=== PATIENT | male | born 1990 | race Caucasian/White ===

== ENCOUNTER 2023-11-26 09:41 | Emergency (ER) | payer OTHER, SELFPAY ==
[2023-11-26 10:00] VITALS: BP 159/99
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
[2023-11-26 16:00] VITALS: BP 141/78
== END 2023-11-26 17:46 | disposition home or self-care (01) ==
LOC: EMR 09:41
PROVIDERS: EMERGENCY PHYSICIAN Emergency Medicine; FAMILY PHYSICIAN Emergency Medicine
DX: T76.21XA Adult sexual abuse, suspected, initial encounter (principal); X58.XXXA Exposure to other specified factors, initial encounter; I10 Essential (primary) hypertension; F17.200 Nicotine dependence, unspecified, uncomplicated; F41.9 Anxiety disorder, unspecified; F32.A Depression, unspecified; Z53.29 Procedure and treatment not carried out because of patient's decision for other reasons
CPT/HCPCS: 99281

== ENCOUNTER → 2023-12-10 15:43 | Outpatient (REF) | payer OTHER, SELFPAY | LOC: RCS 15:43 | PROVIDERS: ATTENDING PHYSICIAN Internal Medicine Cardiovascular Disease; FAMILY PHYSICIAN Emergency Medicine | DX: I10 Essential (primary) hypertension (principal) | CPT/HCPCS: 93306 ==

== ENCOUNTER 2024-01-17 22:27 | Emergency (ER) | payer OTHER, SELFPAY ==
[2024-01-17 22:30] VITALS: BP 139/96
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
[2024-01-18] MEDS: ROCEPHIN 500 MG IM (03:22)
[2024-01-18] MEDS: VIBRAMYCIN 100 MG PO (03:23)
[2024-01-18] MEDS: TRUVADA TABLET 1 TABLET PO (03:23)
[2024-01-18] MEDS: ISENTRESS 400 MG PO (03:24)
[2024-01-18 03:47] LABS: % Basophils 0.8 % (0-2); % Eosinophils 1.8 % (0-6); % Immature Granulocytes 0.1 % (0-0.5); % Monocytes 8.8 % (1.7-9.3); % Neutrophils 41.5 % (42.2-75.2); Absolute Basophils 0.1 10^3/uL (0-0.2); Absolute Eosinophils 0.2 10^3/uL (0-0.7); Absolute Lymphocytes 4.3 10^3/uL (1.2-3.4); Absolute Monocytes 0.8 10^3/uL (0.1-0.6); Absolute Neutrophils 3.8 10^3/uL (1.4-6.5); Hematocrit 41.5 % (39.0-52.0); Hemoglobin 14.4 g/dL (13.0-18.0); Mean Corp Hgb Conc. 34.7 g/dL (33.0-37.0); Mean Corpuscular Hgb 27.4 pg (27.0-31.0); Mean Platelet Volume 10.6 fL (7.4-10.4); Nucleated Red Blood Cells % 0 % (-); Platelet Count 259 10^3/uL (130-400); Red Blood Cell Count 5.25 10^6/uL (4.70-6.10); Red Cell Dist. Width 13.3 % (11.5-14.5); White Blood Cell Count 9.1 10^3/uL (4.8-10.8)
[2024-01-18 04:06] VITALS: BP 132/88
[2024-01-18 04:11] LABS: ALT (SGPT) 37 U/L (0-50); AST (SGOT) 32 U/L (17-59); Albumin 4.5 g/dl (3.5-5.0); Alkaline Phosphatase 75 U/L (38-126); Blood Urea Nitrogen 22 mg/dl (9-20); Calcium 9.7 mg/dl (8.4-10.2); Carbon Dioxide 27 mmol/L (22-30); Chloride 99 mmol/L (98-107); Glucose 100 mg/dl (70-99); Potassium 3.7 mmol/L (3.5-5.1); Sodium 134 mmol/L (135-145); Total Bilirubin 0.4 mg/dl (0.2-1.3); Total Protein 7.2 g/dl (6.3-8.2); eGFR > 60.00
[2024-01-18 04:43] LABS: Hepatitis B Surface Antigen Negative (Negative)
[2024-01-18 05:01] LABS: Hepatitis B Surface Antibody Positive; Hepatitis C Antibody Negative (Negative)
[2024-01-18 14:15] LABS: HIV Combo Negative (Negative)
[2024-01-18 15:57] LABS: Syphilis/T. pallidum Ab Reflex Negative (Negative)
== END 2024-01-18 04:11 | disposition home or self-care (01) ==
LOC: EMR 22:27
PROVIDERS: EMERGENCY PHYSICIAN Emergency Medicine; FAMILY PHYSICIAN Emergency Medicine
DX: Z77.21 Contact with and (suspected) exposure to potentially hazardous body fluids (principal); Z20.2 Contact with and (suspected) exposure to infections with a predominantly sexual mode of transmission; S50.12XA Contusion of left forearm, initial encounter; X58.XXXA Exposure to other specified factors, initial encounter; I10 Essential (primary) hypertension; F41.9 Anxiety disorder, unspecified; F17.200 Nicotine dependence, unspecified, uncomplicated
CPT/HCPCS: 99284; 96372; 80053; 85025; 86706; 86780; 86803; 87340; 87389; 87491; 87591

== ENCOUNTER 2024-02-25 21:33 | Emergency (ER) | payer OTHER, SELFPAY ==
[2024-02-25 21:42] VITALS: BP 161/92
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
== END 2024-02-25 22:41 | disposition home or self-care (01) ==
LOC: EMR 21:33
PROVIDERS: EMERGENCY PHYSICIAN Emergency Medicine
DX: F41.0 Panic disorder [episodic paroxysmal anxiety] (principal); W01.0XXA Fall on same level from slipping, tripping and stumbling without subsequent striking against object, initial encounter; F41.9 Anxiety disorder, unspecified; I10 Essential (primary) hypertension; F32.A Depression, unspecified; F17.200 Nicotine dependence, unspecified, uncomplicated
CPT/HCPCS: 99283

== ENCOUNTER 2024-02-26 01:53 | Emergency (ER) | payer OTHER, SELFPAY ==
[2024-02-26 01:57] VITALS: BP 168/111
--- NOTE | 2024-02-26 02:34 | ED.GENMED ---
History of Present Illness
General
Chief Complaint: Anxiety
Source: patient and previous hospital records (ED visit earlier this evening for similar complaint)
Exam Limitations: none
Time Seen by Provider: 02/26/24 02:15
Nursing documentation reviewed up to this point in time: agreed with
History of Present Illness
History of Present Illness:
This is a 33-year-old gentleman who admits to methamphetamine use, generally using on a daily basis/twice daily. He admits to increased anxiety, feels that he is going to and although he does admit that anxiety and panic is worsened after
methamphetamine use tonight he does not believe this is a causative factor.
There is reported history of bipolar disorder and he also has history of 6 mm hemangioma left anterior eli noted on MRI of the brain April 2023. MRI was performed due to complaints of headache and reported family history of aneurysms. MRI of
the cervical spine unremarkable. MRI of the brain unremarkable.
He currently denies headache, he does admit to intermittent dizziness more so with standing. No episodes of syncope. He denies chest pain or shortness of breath. No cough, no fever no chills, no abdominal pain, no nausea or vomiting.
He denies suicidal thoughts or plan. He admits to difficulty sleeping which is worsened with ongoing daily methamphetamine use.
Past History
Past History
ED Past Medical History: HTN, Psychiatric (Anxiety, Depression, bipolar disorder, substance abuse), Other ( 6 mm hemangioma left eli incidental finding MRI of the brain April 2023. Unremarkable MRI of the brain, unremarkable MRI cervical
spine.) and Other (Angular chelitis)
ED Past Surgical History: Other (rhinoplasty, left ear surgery)
Patient has exhibited threatening behavior?: No
Social History
Tobacco: Smoker
Alcohol: None
Drug: Cocaine (Methamphetamine abuse.)
Personal: Single
Living: alone
Employment: Not employed
Family History
Family History: Unable to obtain
Phy Exam
Physical Exam
Physical Exam:
GENERAL: 33-year-old male appears his stated age, mildly disheveled, mildly to moderately anxious but easily communicative. Speech is pressured. Mildly scattered thought processes but no suicidal ideations. No hallucinations. Intermittently
sipping water from a straw.
EYE: pupils are 6 mm equal and reactive. anicteric
NECK: Supple, nontender, no meningismus, no significant adenopathy.
ENT: posterior pharynx is clear, oral mucosa is moist. No rhinorrhea.
CARDIAC: Regular rate and rhythm. no murmur.
LUNGS: Clear breath sounds bilaterally, no acute respiratory distress, no wheezes/rales/rhonchi
ABDOMEN: Soft, nondistended, without focal tenderness, no r/g, no cvat. normoactive BS.
NEUROLOGICAL: Alert and oriented x3, no focal neuro deficits. Gait is duarte and steady.
SKIN: Warm and dry, normal color, skin intact. No rash.
MUSCULOSKELETAL: No C/C/E. peripheral pulses are full and equal b/l. No palpable tenderness.
PSYCH: Moderately anxious. Pressured speech. Mildly scattered thought processes. Admits to ongoing methamphetamine use on a daily basis. Denies suicidal thoughts or plan. Poor insight and judgment.
Course
Orders/Labs/Results
Orders:
Orders
02/26/24 02:18
Urine Drug Abuse Screen Urgent
Date Specimen was Collected: 02/26/24
Time Specimen was Collected: 02:25
Vital Signs
Initial and Last Documented VS:
Initial Vital Signs
Temp Pulse Resp BP Pulse Ox
97.8 F 86 18 168/111 94
02/26/24 01:57 02/26/24 01:57 02/26/24 01:57 02/26/24 01:57 02/26/24 01:57
Last Documented Vital Signs
Temp Pulse Resp BP Pulse Ox
97.8 F 86 18 168/111 94
02/26/24 01:57 02/26/24 01:57 02/26/24 01:57 02/26/24 01:57 02/26/24 01:57
MDM/Problems Addressed
Differential Diagnosis Includes:
Patient admits to at least twice daily methamphetamine use and presents to this ED twice within a few hours with complaints of anxiety, panic, feeling that he is going to .
We began to discuss discontinuing methamphetamine use and with this, he abruptly became argumentative, angry requesting to leave, got himself up off of the stretcher, dressed and promptly walked out of the ED.
During this episode I have encouraged him to stay, to discuss things rationally/calmly and slowly, and to continue evaluation but he adamantly refuses and has walked out of the ED.
He continues to deny headache, no focal neuro-deficits on exam and he continues to deny suicidal thoughts or plan.
He is anxious and agitated, exhibits somewhat pressured speech but remains coherent.
Poor insight and judgment but at this point does not appear to be an imminent danger to himself nor others.
He has promptly and swiftly walked out of the ED with steady and unaided gait.
I have significant concern that his ongoing methamphetamine abuse is cause for his current decompensation but at this point he does not appear to be a danger to himself and clearly not ready/willing to discuss drug rehab/sobriety.
Chronic conditions affecting care: Psychiatric illness and Other (Ongoing methamphetamine abuse)
Acute Exacerbation and/or Progression of Chronic Illness: Psychiatric illness
*Pulse Oximetry
Patient hypoxic: no
*Map Compiler Interpretation
Rate: normal
Interpretation: normal
Rhythm: sinus
*Critical Care Note
Total Time (30-74mins, 75-104mins- exclusive of procedures): Not Applicable
ED Attending Note
-
Portions of this chart may have been created with voice recognition software.� Occasional wrong word or��sound alike� substitutions may have occurred due to the inherent limitations of voice recognition software.
Discharge Plan
Departure
Patient Disposition: Against Medical Advice
Date of Disposition: 02/26/24
Time of Disposition: 02:42
Condition: Fair
Discharge Problem:
Methamphetamine abuse
Prescriptions:
No Action
hydrochlorothiazide 25 MG tablet
25 mg PO DAILY
lisinopril 40 MG tablet
40 mg PO DAILY
Isentress 400 mg tablet
400 mg PO BID 28 Days Qty: 56 0RF
emtricitabine-tenofovir (TDF) [Truvada] 200-300 mg tablet
1 tab PO DAILY 28 Days Qty: 28 0RF
doxycycline hyclate 100 mg tablet
100 mg PO BID 7 Days Qty: 14 0RF
Referrals:
Trini Marin MD [Family Provider] -
Interventions
Interventions:
*Risk Screen - Suicide Last Done: 02/26/24 01:57
*General Assessment Last Done: 02/26/24 01:57
*Neglect/Abuse Screening Last Done: 02/26/24 01:57
*ED COVID-19 Vaccine History Last Done: 02/26/24 02:05
*Nursing Disposition Last Done: 02/26/24 02:48
ED-Psychological Assessment Last Done: 02/26/24 02:06
Discharge Date and Time
Discharge Date/Time: 02/26/24 02:49
Print Language: MAORI
--- NOTE | 2024-02-26 02:35 | EDRN ---
Dr. Pantoja evaluated patient, pt offered to speak with crisis, pt decline and then stated ' I am leaving'. This RN entered room to speak with patient. Pt climbed out of stretcher and was putting on clothing, IV removed. Pt stated ' I am on disability
and you are kicking me out'. RN told patient that no one is kicking him out and that this RN would like him to stay to be evaluated. Pt declined treatment and stated ' I just want to go home and sleep in my bed'. Pt asked to speak with crisis, RN
offered to have crisis speak with him. Pt asking to leave ER and go over to crisis.Pt dressed himself and security escorted patient to [facility] by security.
== END 2024-02-26 02:49 | disposition left against medical advice (07) ==
LOC: EMR 01:53
PROVIDERS: EMERGENCY PHYSICIAN Emergency Medicine; FAMILY PHYSICIAN Emergency Medicine
DX: F15.10 Other stimulant abuse, uncomplicated (principal); F41.9 Anxiety disorder, unspecified; R45.1 Restlessness and agitation; Z53.29 Procedure and treatment not carried out because of patient's decision for other reasons; G47.9 Sleep disorder, unspecified; I10 Essential (primary) hypertension; D18.09 Hemangioma of other sites; F31.9 Bipolar disorder, unspecified; F32.A Depression, unspecified; F17.200 Nicotine dependence, unspecified, uncomplicated
CPT/HCPCS: 99281

== ENCOUNTER 2024-02-26 08:33 | Emergency (ER) | payer OTHER, SELFPAY ==
[2024-02-26 08:43] VITALS: BP 157/90; BMI 27.0
--- NOTE | 2024-02-26 10:01 | ED.GENMED ---
History of Present Illness
General
Chief Complaint: Hyper/Hypo Thermia Problem
Source: patient
Exam Limitations: none
Time Seen by Provider: 02/26/24 08:43
Nursing documentation reviewed up to this point in time: agreed with
History of Present Illness
History of Present Illness:
Patient with history of bipolar disorder, anxiety, and depression, presents to ED for evaluation, as he reported to 'TV show', and 'collapsed', after walking 12 miles. Patient was evaluated in ED earlier today for panic attack and was discharged
home. This is when he proceeded to walk 12 miles to appear at TV show. Denies preceding chest palpitations or shortness of breath. Denies headache. Denies dizziness. Denies recent change in medications or diet.
Past History
Past History
ED Past Medical History: HTN, Psychiatric (Anxiety, Depression, bipolar disorder, substance abuse), Other ( 6 mm hemangioma left eli incidental finding MRI of the brain April 2023. Unremarkable MRI of the brain, unremarkable MRI cervical
spine.) and Other (Angular chelitis)
ED Past Surgical History: Other (rhinoplasty, left ear surgery)
Patient has exhibited threatening behavior?: No
Social History
Tobacco: Smoker
Alcohol: None
Drug: Cocaine (Methamphetamine abuse.)
Personal: Single
Living: alone
Employment: Not employed
Family History
Family History: Unable to obtain
Review of Systems
Review of Systems
Allergies reviewed?: Yes
All Other Systems: ROS reviewed and negative except as documented in HPI and ROS
Constitutional: Reports no symptoms
EENT: Reports no symptoms
Respiratory: Reports no symptoms
Cardiac: Reports syncope
ABD/GI: Reports no symptoms
Musculoskeletal: Reports no symptoms
Skin: Reports no symptoms
Neurological: Reports no symptoms
Phy Exam
Physical Exam
Physical Exam:
Physical Exam
General: no apparent distress, not acutely ill. afebrile
Head: nc/at. eomi
Neck: supple. no meningeal signs.
Heart: s1/s2 regular rate and rhythm, no murmur. equal radial pulses.
Lungs: no acute respiratory distress. clear bilaterally
Abdomen: normal bowel sounds. not tender.
Neuro: alert and oriented. no focal neurological deficits
Skin: no rash
Psychiatric: well kept. interactive and cooperative, but with tangential thoughts
Extremities: no edema. no calf tenderness.
Course
Orders/Labs/Results
Orders:
Orders
02/26/24 09:19
Crisis Consult Urgent
Reason for Consult: delusional thoughts
02/26/24 09:28
Diphenhydramine [Benadryl] 50 mg .ROUTE .STK-MED ONE
Ketorolac [Toradol] 15 mg .ROUTE .STK-MED ONE
Ondansetron Injectable [Zofran] 4 mg .ROUTE .STK-MED ONE
Abnormal Lab Results
02/26/24
16:46
POC Glucose 163 H mg/dl
(70-99)
Vital Signs
Initial and Last Documented VS:
Initial Vital Signs
Temp Pulse Resp BP Pulse Ox
98.4 F 96 16 157/90 100
02/26/24 08:43 02/26/24 08:43 02/26/24 08:43 02/26/24 08:43 02/26/24 08:43
Last Documented Vital Signs
Temp Pulse Resp BP Pulse Ox
98.4 F 97 16 158/88 99
02/26/24 08:43 02/26/24 12:29 02/26/24 12:29 02/26/24 12:29 02/26/24 12:29
MDM/Problems Addressed
MDM/Problems Addressed:
Pt's history of having collapsed at work site inconsistent with report from paramedics who report that patient was picked up, walking along the street, alone. Pt does have MRI identified hemangioma, picked up incidentally in 05/17. Pt since then has
had follow up with neurologist @ [facility]. He is scheduled for outpatient MRI brain as a follow up.
In light of patient's multiple ED visits, will consult [facility].
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
At this point, patient is afebrile, hemodynamically stable, and neurologically intact at time of discharge. No indication for any further workup at this time.
*Critical Care Note
Total Time (30-74mins, 75-104mins- exclusive of procedures): Not Applicable
ED Attending Note
-
Portions of this chart may have been created with voice recognition software.� Occasional wrong word or��sound alike� substitutions may have occurred due to the inherent limitations of voice recognition software.
Discharge Plan
Departure
Patient Disposition: Home (Routine Discharge)
Date of Disposition: 02/26/24
Time of Disposition: 11:27
Patient with high blood pressure during this ER visit?: Yes
Condition: Good
Discharge Problem:
Anxiety
Instructions: Anxiety, Adult ED
Prescriptions:
No Action
hydrochlorothiazide 25 MG tablet
25 mg PO DAILY
lisinopril 40 MG tablet
40 mg PO DAILY
Isentress 400 mg tablet
400 mg PO BID 28 Days Qty: 56 0RF
emtricitabine-tenofovir (TDF) [Truvada] 200-300 mg tablet
1 tab PO DAILY 28 Days Qty: 28 0RF
doxycycline hyclate 100 mg tablet
100 mg PO BID 7 Days Qty: 14 0RF
Referrals:
Trini Marin MD [Family Provider] -
Activity Restrictions/Additional Instructions:
As discussed, please continue to follow-up with your neurologist at [facility] as well as [facility] outpatient treatment center, for continual evaluation and treatment.
Interventions
Interventions:
*Risk Screen - Suicide Last Done: 02/26/24 08:43
*General Assessment Last Done: 02/26/24 08:43
*Neglect/Abuse Screening Last Done: 02/26/24 08:43
ED- Fall Risk Assessment Last Done: 02/26/24 11:52
*ED COVID-19 Vaccine History Last Done: 02/26/24 08:43
*Nursing Disposition Last Done: 02/26/24 12:29
ED- Neurological Assessment Last Done: 02/26/24 11:52
ED-Skin Assessment Last Done: 02/26/24 11:52
Discharge Date and Time
Discharge Date/Time: 02/26/24 12:35
Print Language: ANGUILLAN
[2024-02-26 12:29] VITALS: BP 158/88
[2024-02-26 16:48] LABS: Glucose - Point of Care 163 mg/dl (70-99)
== END 2024-02-26 12:35 | disposition home or self-care (01) ==
LOC: EMR 08:33
PROVIDERS: EMERGENCY PHYSICIAN Emergency Medicine; FAMILY PHYSICIAN Emergency Medicine
DX: R55 Syncope and collapse (principal); F31.9 Bipolar disorder, unspecified; F41.9 Anxiety disorder, unspecified; F22 Delusional disorders; F32.A Depression, unspecified; F15.10 Other stimulant abuse, uncomplicated; F41.0 Panic disorder [episodic paroxysmal anxiety]; I10 Essential (primary) hypertension; D18.09 Hemangioma of other sites; F17.200 Nicotine dependence, unspecified, uncomplicated; Z91.51 Personal history of suicidal behavior
CPT/HCPCS: 99283; 82962

== ENCOUNTER 2024-02-26 14:54 | Emergency (ER) | payer OTHER, SELFPAY ==
[2024-02-26 15:02] VITALS: BP 157/77
[2024-02-26 15:20] LABS: % Basophils 0.4 % (0-2); % Eosinophils 0.3 % (0-6); % Immature Granulocytes 0.3 % (0-0.5); % Lymphocytes 17.2 % (20.5-51.1); % Monocytes 7.9 % (1.7-9.3); % Neutrophils 73.9 % (42.2-75.2); Absolute Basophils 0.1 10^3/uL (0-0.2); Absolute Lymphocytes 2.3 10^3/uL (1.2-3.4); Absolute Monocytes 1.1 10^3/uL (0.1-0.6); Absolute Neutrophils 10.1 10^3/uL (1.4-6.5); Hematocrit 39.6 % (39.0-52.0); Hemoglobin 13.9 g/dL (13.0-18.0); Mean Corp Hgb Conc. 35.1 g/dL (33.0-37.0); Mean Corpuscular Hgb 28.2 pg (27.0-31.0); Mean Corpuscular Volume 80.3 fL (80.0-94.0); Mean Platelet Volume 10.7 fL (7.4-10.4); Nucleated Red Blood Cells % 0 % (-); Platelet Count 250 10^3/uL (130-400); Red Blood Cell Count 4.93 10^6/uL (4.70-6.10); Red Cell Dist. Width 13.5 % (11.5-14.5); White Blood Cell Count 13.6 10^3/uL (4.8-10.8)
[2024-02-26 15:41] LABS: ALT (SGPT) 41 U/L (0-50); AST (SGOT) 61 U/L (17-59); Albumin 4.8 g/dl (3.5-5.0); Alkaline Phosphatase 91 U/L (38-126); Blood Urea Nitrogen 23 mg/dl (9-20); Calcium 9.3 mg/dl (8.4-10.2); Carbon Dioxide 15 mmol/L (22-30); Chloride 101 mmol/L (98-107); Glucose 69 mg/dl (70-99); Potassium 4.1 mmol/L (3.5-5.1); Sodium 136 mmol/L (135-145); Total Bilirubin 1.4 mg/dl (0.2-1.3); eGFR > 60.00
--- NOTE | 2024-02-26 15:49 | ED.GENMED ---
History of Present Illness
General
Chief Complaint: Social Service Referral
Time Seen by Provider: 02/26/24 14:56
History of Present Illness
History of Present Illness:
Patient is a 33-year-old man with history of bipolar disorder, depression anxiety presenting to the emergency department for medical clearance. Per chart review patient has been here twice today. 1 after likely using methamphetamine and another
time after patient was found wandering in the streets. He is coming today after he was arrested by police. He is under their custody. Patient states that he was opening a car door when this occurred. He denies any SI or HI. Denies any alcohol
or drug use currently. He denies any chest pain difficulty breathing or belly pain. No nausea or vomiting. He does state that he does eat and drink though he does feel dehydrated as he has not been eating as much as he should be. He is extremely
agitated that he is here with police.
Past History
Past History
ED Past Medical History: HTN, Psychiatric (Anxiety, Depression, bipolar disorder, substance abuse), Other ( 6 mm hemangioma left eli incidental finding MRI of the brain April 2023. Unremarkable MRI of the brain, unremarkable MRI cervical
spine.) and Other (Angular chelitis)
ED Past Surgical History: Other (rhinoplasty, left ear surgery)
Patient has exhibited threatening behavior?: No
Social History
Tobacco: Smoker
Alcohol: None
Drug: Cocaine (Methamphetamine abuse.)
Personal: Single
Living: alone
Employment: Not employed
Family History
Family History: Unable to obtain
Phy Exam
Physical Exam
Physical Exam:
GENERAL: in no acute distress
HEENT: normocephalic, extraocular movements intact, moist oral mucosa
NECK: normal inspection
RESPIRATORY: no respiratory distress, clear to auscultation bilaterally
CARDIOVASCULAR: regular rate and rhythm
ABDOMEN/: soft, non-distended, non-tender to palpation, no rebound or guarding
EXTREMITIES: non-tender, no edema/swelling
NEUROLOGIC: awake and alert, moves all extremities
Alert and oriented x 3, normal mood and affect, not currently suicidal or homicidal, cooperative and communicating though intermittently agitated towards police, no active auditory or visual hallucinations
SKIN: warm
Course
Orders/Labs/Results
Orders:
Orders
02/26/24 15:04
Electrocardiogram (*1) Urgent
Reason for Study: Other
Other Reason for Exam: medical clearence
EKG- Treatment ONCE
02/26/24 15:13
CMP [Comprehensive Metabolic Panel] Urgent
Complete Blood Count/With Diff Urgent
Abnormal Lab Results
02/26/24
15:13
WBC 13.6 H 10^3/uL
(4.8-10.8)
MPV 10.7 H fL
(7.4-10.4)
Absolute Neuts (auto) 10.1 H 10^3/uL
(1.4-6.5)
Absolute Monos (auto) 1.1 H 10^3/uL
(0.1-0.6)
Lymphocytes % 17.2 L %
(20.5-51.1)
Carbon Dioxide 15 L mmol/L
(22-30)
BUN 23 H mg/dl
(9-20)
Glucose 69 L mg/dl
(70-99)
Total Bilirubin 1.4 H mg/dl
(0.2-1.3)
AST 61 H U/L
(17-59)
02/26/24 15:13
02/26/24 15:13
Vital Signs
Initial and Last Documented VS:
Initial Vital Signs
Temp Pulse Resp BP Pulse Ox
98.3 F 91 19 157/77 98
02/26/24 15:02 02/26/24 15:02 02/26/24 15:02 02/26/24 15:02 09/03/24 15:02
Last Documented Vital Signs
Temp Pulse Resp BP Pulse Ox
98.3 F 91 19 157/77 98
02/26/24 15:02 02/26/24 15:02 02/26/24 15:02 02/26/24 15:02 02/26/24 15:02
MDM/Problems Addressed
Differential Diagnosis Includes:
Patient is a 33-year-old man with history of bipolar, depression presenting to the emergency department under police custody for clearance. Vitals are unremarkable on exam shows a man who is calm and cooperative with no current complaints. Blood
work was obtained prior to my evaluation. Unfortunately he does have a low CO2 as well as an elevated anion gap. He does state that he is not been drinking and eating as much as he likes. Likely related to some sort of ketoacidosis. I did offer
patient IV fluids and some D5 normal saline however patient states that has been able to tolerate p.o. and would prefer no more IV as she has had multiple in the past 12 hours. Will give patient p.o. and repeat Accu-Chek. He is otherwise
well-appearing so I do not think the low bicarb is an infectious or sepsis process. He does not have any etiology of an infection on history or exam. I do think at this time it is reasonable for p.o. fluids.
*Critical Care Note
Total Time (30-74mins, 75-104mins- exclusive of procedures): Not Applicable
Update Note
Update Note:
On reevaluation patient more agitated at the police. He is requesting to leave the hospital as he wants to finish out the process with the police officers. Repeat blood sugar after adequate p.o. was normal. Patient continues to remain
well-appearing. We did discuss again the option of IV fluids however patient would prefer to leave at this time. Will discharge at this time with strict return precautions.
ED Attending Note
-
Portions of this chart may have been created with voice recognition software.� Occasional wrong word or��sound alike� substitutions may have occurred due to the inherent limitations of voice recognition software.
Discharge Plan
Departure
Patient Disposition: Home (Routine Discharge)
Date of Disposition: 02/26/24
Time of Disposition: 16:48
Patient with high blood pressure during this ER visit?: Yes
Discharge Problem:
Dehydration
Prescriptions:
No Action
hydrochlorothiazide 25 MG tablet
25 mg PO DAILY
lisinopril 40 MG tablet
40 mg PO DAILY
Isentress 400 mg tablet
400 mg PO BID 28 Days Qty: 56 0RF
emtricitabine-tenofovir (TDF) [Truvada] 200-300 mg tablet
1 tab PO DAILY 28 Days Qty: 28 0RF
doxycycline hyclate 100 mg tablet
100 mg PO BID 7 Days Qty: 14 0RF
Referrals:
NONE,* [Family Provider] -
Activity Restrictions/Additional Instructions:
You were seen in the Emergency Department today. Please make sure you stay well-hydrated and continue to eat at least 3 large meals a day.
We would like for you to follow up with your primary care physician for further evaluation. If you experience fever, worsening of your symptoms, or develop any other new or concerning symptoms, please return to the Emergency Department immediately.
Please see the attached sheet for additional information.
Interventions
Interventions:
*Risk Screen - Suicide Last Done: 02/26/24 14:56
*General Assessment Last Done: 02/26/24 14:56
Discharge Date and Time
Print Language: ITALIAN
== END 2024-02-26 16:51 | disposition home or self-care (01) ==
LOC: EMR 14:54
PROVIDERS: Emergency Medicine; EMERGENCY PHYSICIAN Student in an Organized Health Care Education/Training Program
DX: E86.0 Dehydration (principal); R45.1 Restlessness and agitation; Z02.79 Encounter for issue of other medical certificate; F31.9 Bipolar disorder, unspecified; F32.A Depression, unspecified; Z65.3 Problems related to other legal circumstances; F15.10 Other stimulant abuse, uncomplicated; I10 Essential (primary) hypertension; F41.9 Anxiety disorder, unspecified; D18.09 Hemangioma of other sites; F17.200 Nicotine dependence, unspecified, uncomplicated
CPT/HCPCS: 99283; 80053; 85025; 93005